=== PATIENT | female | born 1985 | race Caucasian/White ===

== ENCOUNTER → 2017-01-03 | Outpatient (CLI) | payer OTHER ==
[~2017-01-03] MED LIST: ALBUAER2 INH; PRENTAB26 PO
== END | disposition home or self-care (01) ==
LOC: C.PAPS 09:36
PROVIDERS: ATTEND Physician Assistant
DX: Z12.4 Encounter for screening for malignant neoplasm of cervix (principal)

== ENCOUNTER 2018-08-22 14:19 | Inpatient (IN) ==
[2018-08-22] MEDS ORDERED: OXYTOCIN 30 UNITS/500 ML BAG IV PRN ×3 (14:30→21:45)
[2018-08-22 14:53] LABS: Hematocrit (blood only) 34.2 % (37-47); Mean Corpuscular Volume 88.8 fL (80-100); Mean Platelet Volume 10.1 fL (7.4-10.4); Platelet Count 175 K/uL (130-400); RDW Coefficient of Variation 12.5 % (11.5-14.5); RDW Standard Deviation 40.4 fL (36.4-46.3); Red Blood Count 3.85 M/uL (4.2-5.4); White Blood Count 7.38 K/uL (4.8-10.8)
[2018-08-22 14:58] LABS: Mean Corpuscular Hgb Conc 35.1 g/dL (32-36)
[2018-08-22] MEDS: LACTATED RINGER'S 1,000 ML IV PRN ×2 (15:34→20:04)
[2018-08-22] MEDS ORDERED: ACETAMINOPHEN 325 MG TAB PO PRN ×2 (16:09→21:45)
--- NOTE | 2018-08-22 17:43 | History & Physical Report ---
Date of Service August 22, 2018 Assessment & Plan (1) Oligohydramnios in third trimester: 32yo at 39+ weeks GA. IOL for oligohydramnios. 1. Fetus: Cat 1 2. Labor: Oxytocin per protocol. Will AROM at next check. 3. GBS- 4. Vitals: wnl History of Present Illness Primary Care Provider: Kiran Hoff MD 32yo at 39.3 weeks GA. Patient present for IOL for oligohydramnios at term. Denied regular CXT, VB, or LOF. Good FM. course has been otherwise uncomplicated. Allergies Allergy/AdvReac Type Severity Reaction Status Date / Time No Known Allergies Allergy Unknown Verified 08/22/18 16:42 Home Medications Home Medications Medication Instructions Recorded Confirmed Type PNV cmb#95-ferrous fumarate-FA 1 tab PO DAILY 08/07/18 08/22/18 History [] albuterol sulfate 2 puff INHALATION QID PRN 08/07/18 08/22/18 History Patient History Medical History Asthma [place] teeth extracted Surgical History H/O LEEP History of colposcopy Social History Preferred Language: [place] Communication Ability: Effective Beliefs That Will Affect Care: None marital status: Current Living Situation: Spouse and Family Current Living Situation Comment: and 3 yo son Other Information That Helps Us Care for You: No Feels Safe at Home: Yes Safety Concerns: Feels Safe At This Time Smoking Status: Never smoker Hx Alcohol Use: No Hx Substance Use: No Physical Exam Genitourinary: OB Exam Abdomen: + irregular contractions Manual OB Exam: + cervical dilation 2 cm, + cervical effacement 80%, + station -2 and + amniotic fluid OB Exam Monitor Tracing: + external FHT monitor used, + external uterine monitor used and + category I Results & Data Vital Signs (Past 12 Hours) Vital Signs Temp Pulse Resp BP 08/22/18 16:50 77 136/72 08/22/18 15:35 78 134/73 08/22/18 14:34 37.0 C 20 08/22/18 14:30 93 H 137/81
--- NOTE | 2018-08-22 17:45 | Labor Progress Brief Note ---
Date of Service August 22, 2018 Subjective Reason For Note: Routine Evaluation Current Pain Level(1-10): 1 Assessment & Plan (1) Oligohydramnios in third trimester: 32yo at 39+ weeks GA. IOL for oligohydramnios. 1. Fetus: Cat 1 2. Labor: Oxytocin per protocol. AROM clr 3. GBS- 4. Vitals: wnl Physical Exam Genitourinary: OB Exam Abdomen: + heart tones and + vertex Manual OB Exam: + cervical dilation 2 cm, + cervical effacement 80% and + station -2 OB Exam Monitor Tracing: + external FHT monitor used, + external uterine monitor used and + category I Results & Data Vital Signs (Past 12 Hours) Vital Signs Temp Pulse Resp BP 08/22/18 16:50 77 136/72 08/22/18 15:35 78 134/73 08/22/18 14:34 37.0 C 20 08/22/18 14:30 93 H 137/81
[2018-08-22] MEDS ORDERED: BUPIVACAINE 0.25% 30 ML VIAL ONE (19:13)
[2018-08-22] MEDS ORDERED: ePHEDrine sulfate 50 MG/ML AMP ONE (19:13)
[2018-08-22] MEDS ORDERED: fentaNYL citrate 100 MCG/2 ML VIAL ONE (19:14)
[2018-08-22] MEDS ORDERED: fentaNYL 2MCG/ML ROPIV 1.25MG/ML 100 ML BAG EPI ONE (19:14)
--- NOTE | 2018-08-22 19:50 | Anesthesiology Consultation ---
Date of Service August 22, 2018 Assessment & Plan Chart Review Chart Review: Patient NOT seen in Pre Admission Testing and Acceptable Risk for Labor Epidural Consults Requested none ASA ASA2 Proposed Anesthesia Anesthesia Type: Labor Epidural and CSE Risk / Benefits Reviewed With: PT / POA / Parent / Guardian, Accepts Plan and Informed Consent Obtained History Height/Weight Height: 5 ft 3 in Weight: 73.391 kg Allergies Allergy/AdvReac Type Severity Reaction Status Date / Time No Known Allergies Allergy Unknown Verified 08/22/18 16:42 Medications Home Medications Medication Instructions Recorded Confirmed Last Taken PNV cmb#95-ferrous fumarate-FA 1 tab PO DAILY 08/07/18 08/22/18 08/21/18 22:00 [] albuterol sulfate 2 puff INHALATION QID PRN 08/07/18 08/22/18 08/21/18 22:00 Active Medications Generic Name Dose Route Start Last Admin Trade Name Freq PRN Reason Stop Dose Admin Acetaminophen 650 mg 08/22/18 16:09 08/22/18 16:45 Tylenol PO 09/21/18 16:08 650 mg Q4H PRN Administration Headache or Pain Oxytocin 30 units in 500 mls @ 12 mls/hr 08/22/18 14:31 08/22/18 18:40 Pitocin IV 08/24/18 14:30 0.72 units/hr .Q24H PRN 12 mls/hr Labor Induction/Augmentation Titration Protocol 0.72 UNITS/HR Lactated Ringer's 1,000 mls @ 125 mls/hr 08/22/18 14:30 08/22/18 19:09 Lr IV 08/24/18 14:29 999 mls/hr .Q8H PRN Infusion L&D Protocol Protocol Past Medical History Medical History Asthma [place] teeth extracted Exercise / Class Metabolic Activity II 4-5 Yardwork/Stairs/Walk up hill Past Surgical History Surgical History H/O LEEP History of colposcopy Past Anesthesia History No Hx of Anesthesia Complications and No Family Hx of Anesthesia Complications Social History Smoking Status: Never smoker Hx Alcohol Use: No Hx Substance Use: No substance use type: does not use Review of Systems no chest pain or sob Physical Exam Vital Signs Last Vital Signs Temp 36.7 C 08/22/18 19:06 Pulse 90 08/22/18 19:48 Resp 18 08/22/18 19:06 BP 137/79 08/22/18 19:06 Pulse Ox 98 08/22/18 19:48 ENMT Mouth: no TMJ abnormality Thyromental Distance: > or= 3.5 Finger Breadths Mallampati Class: II Neck normal visual inspection Respiratory normal respiratory effort Auscultation: lungs clear to auscultation bilaterally Cardiovascular Rate/Rhythm: regular rate and regular rhythm Musculoskeletal Spine: normal cervical ROM Neurologic moves all extremities Psychiatric Orientation: alert and oriented x 3 Testing Other Testing hgb 12 plt 175
[2018-08-22] MEDS ORDERED: ePHEDrine sulfate 50 MG/ML AMP IV PRN (20:03)
[2018-08-22] MEDS ORDERED: NALBUPHINE HCL INJ 10 MG/ML AMP IV PRN (20:03)
[2018-08-22] MEDS ORDERED: ONDANSETRON INJ 2 MG/ML 2 ML VIAL IV PRN (20:03)
[2018-08-22] MEDS ORDERED: NALOXONE HCL 0.4 MG/1 ML VIAL/CARP IV PRN (20:03)
[2018-08-22] MEDS ORDERED: fentaNYL 2MCG/ML ROPIV 1.25MG/ML 100 ML BAG EPI PRN (20:03)
[2018-08-22] MEDS ORDERED: DiphenhydrAMINE HCL 50 MG/ML VIAL IV PRN (20:03)
[2018-08-22] MEDS ORDERED: NALOXONE HCL 1 MG in SODIUM CHLORIDE 0.9% 1000ML 1,000 ML IV PRN (20:03)
--- NOTE | 2018-08-22 21:14 | Labor Progress Brief Note ---
Date of Service August 22, 2018 Subjective Reason For Note: Routine Evaluation Assessment & Plan (1) Oligohydramnios in third trimester: 32yo at 39+ weeks GA. IOL for oligohydramnios. 1. Fetus: Cat 1 2. Labor: Oxytocin per protocol. AROM clr. Complete and preparing to start pushing 3. GBS- 4. Vitals: wnl Physical Exam Genitourinary: OB Exam Abdomen: + regular contractions Manual OB Exam: + cervical dilation 10 cm, + cervical effacement 100% and + station + 2 OB Exam Monitor Tracing: + external FHT monitor used, + external uterine monitor used and + category I Results & Data Vital Signs (Past 12 Hours) Vital Signs Temp Pulse Resp BP Pulse Ox 08/22/18 21:08 103 H 99 08/22/18 21:03 90 99 08/22/18 21:02 100 H 119/78 08/22/18 21:00 18 08/22/18 20:58 90 98 08/22/18 20:55 36.9 C 08/22/18 20:53 106 H 98 08/22/18 20:48 88 97 08/22/18 20:47 116 H 117/74 08/22/18 20:45 20 08/22/18 20:43 100 H 99 08/22/18 20:38 75 100 08/22/18 20:33 69 99 08/22/18 20:32 60 115/56 L 08/22/18 20:30 20 08/22/18 20:29 65 124/78 08/22/18 20:28 69 99 08/22/18 20:24 71 116/88 92 08/22/18 20:23 73 99 08/22/18 20:20 68 20 123/59 L 08/22/18 20:18 64 96 08/22/18 20:17 73 93 08/22/18 20:15 20 08/22/18 20:14 71 123/61 08/22/18 20:13 67 98 08/22/18 20:12 65 121/58 L 08/22/18 20:10 20 08/22/18 20:09 65 91 08/22/18 20:08 74 99 08/22/18 20:07 70 117/59 L 08/22/18 20:05 79 18 132/79 06/12/19 20:03 68 140/79 99 08/22/18 20:01 77 132/79 93 08/22/18 20:00 18 08/22/18 19:59 78 125/84 08/22/18 19:58 75 96 08/22/18 19:53 81 136/81 98 08/22/18 19:52 84 91 08/22/18 19:48 90 98 08/22/18 19:06 36.7 C 74 18 137/79 08/22/18 18:53 36.7 C 20 08/22/18 18:52 75 132/79 08/22/18 17:57 73 136/78 08/22/18 16:50 77 136/72 08/22/18 15:35 78 134/73 08/22/18 14:34 37.0 C 20 08/22/18 14:30 93 H 137/81
[2018-08-22] MEDS ORDERED: BENZOCAINE 20% AER SPR 82.5 GM CAN EXT PRN (21:45)
[2018-08-22] MEDS ORDERED: HYDROCORTISONE ACETATE 25 MG SUPP PR PRN (21:45)
[2018-08-22] MEDS ORDERED: IBUPROFEN 600 MG TAB PO PRN (21:45)
[2018-08-22] MEDS ORDERED: SUPERCREAM 0.870% 15 GM JAR EXT PRN (21:45)
[2018-08-22] MEDS ORDERED: BISACODYL 10 MG SUPP PR PRN (21:45)
[2018-08-22] MEDS ORDERED: DIPHTHERIA/TETANUS/PERTUSSIS 0.5 ML SYR/VIAL IM ONE (21:45)
--- NOTE | 2018-08-22 22:12 | Anesthesia Procedure Note ---
Date of Service August 22, 2018 Anesthesia Post Epidural Note Vital Signs Vital Signs: Temp Pulse Resp BP Pulse Ox 37.0 C 81 20 128/58 L 92 08/22/18 21:50 08/22/18 22:05 08/22/18 22:05 08/22/18 22:05 08/22/18 21:45 Pain Intensity Bilateral Abdomen: Pain Intensity: 0 Notes Mental Status: alert / awake / arousable and participated in evaluation Nausea / Vomiting: adequately controlled Pain: adequately controlled Airway Patency, RR, SpO2: stable & adequate BP & HR: stable & adequate Hydration State: stable & adequate Neuraxial Anesthesia: was administered and sensory block is resolving Anesthetic Complications: no major complications apparent and Pt Satisfied with anesthetic care Epidural: Removed without complications and With tip intact
--- NOTE | 2018-08-22 22:48 | Delivery Summary ---
DATE OF OPERATION: 08/22/2018 PROCEDURE: Normal spontaneous vaginal delivery. Second degree laceration with repair. SURGEON: Eddie South MD PREOPERATIVE DIAGNOSES: 1. Single intrauterine at 39+ weeks gestational age. 2. Oligohydramnios. 3. Prior history of oligohydramnios. POSTOPERATIVE DIAGNOSES. 1. Single intrauterine at 39+ weeks gestational age. 2. Oligohydramnios. 3. Prior history of oligohydramnios. 4. Delivered. ESTIMATED BLOOD LOSS: 300 mL. DRAINS: None. FLUIDS: Continuous lactated ringer. URINE OUTPUT: Not measured. COMPLICATIONS: None. FINDINGS: Viable female infant with weight pending and Apgars of 8 and 9 at 1 and 5 minutes respectively. INDICATIONS: Betty is a 32-year-old G2, P1-0-0-1 admitted at 39+ weeks gestational age for induction of labor secondary to oligohydramnios diagnosed on day of admission. DESCRIPTION OF PROCEDURE: At initial evaluation, the patient was found to be 2 cm dilated, 80% effaced, -2 station, cephalic by sutures. The patient was started on oxytocin per regular protocol and then underwent artificial rupture of membranes for clear fluid. The patient received epidural anesthesia and progressed to complete-complete +2, at which time she began to push and pushed for approximately 4-5 contractions to achieve delivery. The patient progressed to 10 cm dilated, 100% effaced, +2 station, pushed over intact perineum with epidural anesthesia and delivered a viable female with the weight and Apgars as noted above. Head of the delivered in AMANDO position restituted to left transverse. No nuchal cord was noted. Body and shoulders quickly followed. The was noted to be vigorous upon delivery and was delivered to the maternal abdomen. 1 minute delayed cord clamping was initiated for which the cord was double clamped and cut. Cord blood was then obtained. Attention was then turned to deliver the placenta, which was delivered intact with 3-vessel cord, gentle cord traction. On inspection of the perineum, cervix, and vagina, there was noted to be second degree perineal laceration which was repaired with 3-0 Vicryl in traditional crown stitch. Needle, sponge and instrument counts were correct at the completion of the case. Both mother and were stable in the immediate post-delivery. I attest to the content of the Intraoperative Record and any orders documented therein. Any exceptions are noted below. MTDD
--- NOTE | 2018-08-23 06:35 | Obstetrical Progress Note ---
Date of Service <Kiran Saucedo MD - Last Filed: 08/23/18 06:35> August 23, 2018 Assessment & Plan <Kiran Saucedo MD - Last Filed: 08/23/18 06:35> (1) Normal vaginal delivery: Betty is a 32yo who presented for IoL 2/2 oligo now s/p at 39+ PPD#1 - GBS negative, RI, O+ - Feels well today. Eating well, voiding well, ambulating well. - Pain well controlled with ibuprofen 600mg Q4H PRN / APAP. - well, no difficulties with latch/feeds - Routine care - After discharge will have [address] South. Subjective <Kiran Saucedo MD - Last Filed: 08/23/18 06:35> Ambulation: ambulating normally Voiding: no voiding problems Passing Gas:: Yes Diet Tolerance:: regular diet Lochia:: Moderate Feeding Type:: breast feeding Current Pain Level(1-10): 1 Review of Systems Denies fever, chills, sweats Denies shortness of breath, difficulty breathing, chest pain, palpitations, chest pressure. Denies breast pain. Denies dysuria. Denies headache. Physical Exam <Kiran Saucedo MD - Last Filed: 08/23/18 06:35> General: Alert, oriented. No acute distress. Cardiac: Regular rate and rhythm, no murmurs/rubs/gallops. Respiratory: Clear to auscultation anterior and posteriorly, no wheezes/rales/rhonchi. No increased work of breathing. Symmetrical chest rise. No respiratory distress. Abdomen: Soft, nontender, nondistended. Bowel sounds present. Uterus: Uterine fundus firm, palpable 1cm below umbilicus. Lower Extremities: No lower extremity edema or swelling. No deep calf pain. Leix's negative bilaterally. Results & Data <Kiran Saucedo MD - Last Filed: 08/23/18 06:35> Vital Signs (Past 12 Hours) Vital Signs Temp Pulse Pulse Resp BP BP Pulse Ox 08/23/18 04:16 36.6 C 69 18 117/75 08/23/18 00:20 36.6 C 77 18 135/82 08/23/18 00:15 36.7 C 20 08/23/18 00:05 79 124/55 L 08/22/18 23:50 71 20 123/58 L 08/22/18 23:35 77 130/60 08/22/18 23:21 88 148/61 H 08/22/18 23:20 77 18 130/60 08/22/18 23:05 77 20 132/62 08/22/18 22:50 77 18 130/60 08/22/18 22:35 77 20 132/62 08/22/18 22:20 79 20 133/62 08/22/18 22:05 81 20 128/58 L 08/22/18 21:50 37.0 C 81 18 135/59 L 08/22/18 21:49 81 135/59 L 08/22/18 21:45 94 H 92 08/22/18 21:43 84 100 08/22/18 21:38 81 96 08/22/18 21:33 81 100 08/22/18 21:28 116 H 93 08/22/18 21:27 98 H 89 L 08/22/18 21:23 107 H 98 08/22/18 21:21 88 93 08/22/18 21:18 86 99/48 L 98 08/22/18 21:15 20 08/22/18 21:14 98 H 91 08/22/18 21:13 98 H 97 08/22/18 21:08 103 H 99 08/22/18 21:03 90 99 08/22/18 21:02 100 H 119/78 08/22/18 21:00 18 08/22/18 20:58 90 98 08/22/18 20:55 36.9 C 08/22/18 20:53 106 H 98 08/22/18 20:48 88 97 08/22/18 20:47 116 H 117/74 08/22/18 20:45 20 08/22/18 20:43 100 H 99 08/22/18 20:38 75 100 08/22/18 20:33 69 99 08/22/18 20:32 60 115/56 L 08/22/18 20:30 20 08/22/18 20:29 65 124/78 08/22/18 20:28 69 99 08/22/18 20:24 71 116/88 92 08/22/18 20:23 73 99 08/22/18 20:20 68 20 123/59 L 08/22/18 20:18 64 96 08/22/18 20:17 73 93 08/22/18 20:15 20 08/22/18 20:14 71 123/61 08/22/18 20:13 67 98 08/22/18 20:12 65 121/58 L 08/22/18 20:10 20 08/22/18 20:09 65 91 08/22/18 20:08 74 99 08/22/18 20:07 70 117/59 L 08/22/18 20:05 79 18 132/79 08/22/18 20:03 68 140/79 99 08/22/18 20:01 77 132/79 93 08/22/18 20:00 18 08/22/18 19:59 78 125/84 08/22/18 19:58 75 96 08/22/18 19:53 81 136/81 98 08/22/18 19:52 84 91 08/22/18 19:48 90 98 08/22/18 19:06 36.7 C 74 18 137/79 08/22/18 18:53 36.7 C 20 08/22/18 18:52 75 132/79 <Eddie South MD - Last Filed: 08/29/18 09:29> Co-Signing Physician Notes Patient evaluated and agree with the above findings and plan Resident Activity Tracking <Kiran Saucedo MD - Last Filed: 08/23/18 06:35> Resident Involvement: Resident Care Provided Care Provided: Adult Hospital Medicine
[2018-08-23 07:20] LABS: Hematocrit (blood only) 33.8 % (37-47); Hemoglobin 11.6 g/dL (12.0-16.0); Mean Corpuscular Hgb Conc 34.3 g/dL (32-36); Mean Corpuscular Volume 89.9 fL (80-100); Mean Platelet Volume 10.3 fL (7.4-10.4); Platelet Count 163 K/uL (130-400); RDW Coefficient of Variation 12.4 % (11.5-14.5); RDW Standard Deviation 40.3 fL (36.4-46.3); Red Blood Count 3.76 M/uL (4.2-5.4); White Blood Count 12.94 K/uL (4.8-10.8)
[2018-08-23] MEDS: PRENATAL VITAMIN 1 TAB PO SCH (08:25)
[2018-08-23] MEDS: DOCUSATE SODIUM 100 MG CAP PO SCH ×2 (08:25→20:17)
[2018-08-23] MEDS ORDERED: BISACODYL 5 MG TABEC PO SCH (20:00)
--- NOTE | 2018-08-24 06:11 | Obstetrical Progress Note ---
Date of Service <Kiran Saucedo MD - Last Filed: 08/24/18 06:11> August 24, 2018 Assessment & Plan <Kiran Saucedo MD - Last Filed: 08/24/18 06:11> (1) Normal vaginal delivery: Betty is a 32yo who presented for IoL 2/2 oligo now s/p at 39+ PPD#2 - GBS negative, RI, O+ - Feels well today. Eating well, voiding well, ambulating well. - Pain well controlled with ibuprofen 600mg Q4H PRN / APAP. - well, no difficulties with latch/feeds - Routine care - After discharge will have [address] South. Subjective <Kiran Saucedo MD - Last Filed: 08/24/18 06:11> Ambulation: ambulating normally Voiding: no voiding problems Passing Gas:: Yes Diet Tolerance:: regular diet Lochia:: Moderate Feeding Type:: breast feeding Current Pain Level(1-10): 1 Review of Systems Denies fever, chills, sweats Denies shortness of breath, difficulty breathing, chest pain, palpitations, chest pressure. Denies breast pain. Denies dysuria. Denies headache. Physical Exam <Kiran Saucedo MD - Last Filed: 08/24/18 06:11> General: Alert, oriented. No acute distress. Cardiac: Regular rate and rhythm, no murmurs/rubs/gallops. Respiratory: Clear to auscultation anterior and posteriorly, no wheezes/rales/rhonchi. No increased work of breathing. Symmetrical chest rise. No respiratory distress. Abdomen: Soft, nontender, nondistended. Bowel sounds present. Uterus: Uterine fundus firm, palpable 2cm below umbilicus. Lower Extremities: No lower extremity edema or swelling. No deep calf pain. Lexi's negative bilaterally. Results & Data <Kiran Saucedo MD - Last Filed: 08/24/18 06:11> Vital Signs (Past 12 Hours) Vital Signs Temp Pulse Pulse Resp BP 08/23/18 23:30 36.7 C 67 18 126/71 08/23/18 20:10 36.7 C 71 18 131/82 <Meghan Siegel MD, FACOG - Last Filed: 08/24/18 07:52> Co-Signing Physician Notes Resident Physician Supervision Note: I was present with Dr. Saucedo during the history and exam. I discussed the case with the resident and agree with the findings and plan as documented in the note. Any exceptions or clarifications are listed here: pt doing well. bleeding dec, voiding, ambul well. ff2 down, nt. baby may have elevated bilirubin. she may need to nest. d/c home, instructions reviewed. f/u 6 wks pp check. Documented By: Meghan Siegel MD, FACOG Resident Activity Tracking <Kiran Saucedo MD - Last Filed: 08/24/18 06:11> Resident Involvement: Resident Care Provided Care Provided: Adult Hospital Medicine
[2018-08-24 06:45] LABS: Hemoglobin 12.1 g/dL (12.0-16.0)
[2018-08-24] MEDS: DOCUSATE SODIUM 100 MG CAP PO SCH (09:17)
[2018-08-24] MEDS: PRENATAL VITAMIN 1 TAB PO SCH (09:17)
== END 2018-08-24 17:45 | disposition home or self-care (01) | DRG 807 ==
LOC: 4S1 14:19 → 4S2 08-23 00:15
DX: O41.03X0 Oligohydramnios, third trimester, not applicable or unspecified; O70.1 Second degree perineal laceration during delivery; Z3A.39 39 weeks gestation of pregnancy; Z37.0 Single live birth